=== PATIENT | male | born 1990 | race African-American/Black ===

== ENCOUNTER 2018-04-20 11:09 | Emergency (ER) | payer OTHER ==
--- NOTE | 2018-04-20 11:39 | ER Document Report ---
HPI - HPI Patient complains to provider of: Persistent right leg pain Onset: Other - 3 weeks Pain Level: 4 Context: 27-year-old male was lifting something when he worked at [employer] and felt pain in the right side of his back. It then progressed to where he had right buttocks pain that radiated down into his leg. He was seen Friday at [facility] and they told him that he had a pulled muscle. No hx back injury or pain. No saddle anesthesia. No fever. No IV drug use. Associated Symptoms: None Exacerbated by: Walking Relieved by: Denies Similar symptoms previously: Yes Recently seen / treated by doctor: Yes - ROS ROS below otherwise negative: Yes Systems Reviewed and Negative: Yes All other systems reviewed and negative Past Medical History - General Information source: Patient - Social History Smoking Status: Unknown if Ever Smoked Frequency of alcohol use: None Drug Abuse: None Lives with: Family Family History: None - Medical History Medical History: Negative Surgical Hx: Negative Vertical Provider Document - CONSTITUTIONAL Agree With Documented VS: Yes Exam Limitations: No Limitations General Appearance: No Apparent Distress - INFECTION CONTROL TRAVEL OUTSIDE OF THE [place] IN LAST 30 DAYS: No - GI/ABDOMEN Gastrointestinal: Abdomen Soft, Abdomen Non-Tender, No Organomegaly - BACK Back: Normal Inspection - MUSCULOSKELETAL/EXTREMETIES Musculoskeletal/Extremeties: MAEW, FROM, Non-Tender - NEURO Level of Consciousness: Alert Motor/Sensory: No Motor Deficit - 5+ strenth gt toe and foot eversion bilaterally, No Sensory Deficit Deep Tendon Reflexes: 2+ - scot patellar, 2 + right ankle , 0 left ankle - DERM Integumentary: No Rash Course - Vital Signs Vital signs: Temp Pulse Resp BP Pulse Ox 98.4 F 70 18 105/56 L 98 04/20/18 11:15 04/20/18 11:15 04/20/18 11:15 04/20/18 11:15 04/20/18 11:15 Discharge - Discharge Clinical Impression: Sciatica, Right ankle reflex loss Condition: Good Disposition: HOME, SELF-CARE Instructions: Acetaminophen, Ibuprofen (General) ([facility]), Sciatica ([facility]) Additional Instructions: See the neurologist about this leg nerve pain and loss of the ankle reflex on the right ankle Return to the emergency room for any worsening of the symptoms if you lose sensation in your groin or the pain gets worse Tylenol up to 4000 mg a day Motrin 3-4 times a day for inflammation and pain Prescriptions: Ibuprofen [Motrin 600 mg Tablet] 600 mg PO Q8HP PRN #30 tablet PRN Reason: Forms: Return to Work Referrals: BOUCHRA MAYO MD [NO LOCAL MD] - Follow up as needed
[2018-04-20 11:46] VITALS: BP 105/56
--- NOTE | 2018-04-20 12:35 | RADIOLOGY REPORT (SQ) ---
EXAM DESCRIPTION: L SPINE WHOLE COMPLETED DATE/TIME: 04/20/2018 12:23 pm REASON FOR STUDY: right leg radiculopathy COMPARISON: None. NUMBER OF VIEWS: Five views including obliques. TECHNIQUE: AP, lateral, oblique, and sacral radiographic images acquired of the lumbar spine. LIMITATIONS: None. FINDINGS: MINERALIZATION: Normal. SEGMENTATION: Normal. No transitional anatomy. ALIGNMENT: Normal. VERTEBRAE: Maintained height. No fracture or worrisome bone lesion. DISCS: Preserved height. No significant osteophytes or end plate irregularity. POSTERIOR ELEMENTS: Pedicles and facets are intact. No pars defect or posterior arch defects. HARDWARE: None in the spine. PARASPINAL SOFT TISSUES: Normal. PELVIS: Intact as visualized. No fractures or worrisome bone lesions. SI joints intact. OTHER: No other significant finding. IMPRESSION: No significant findings. TECHNICAL DOCUMENTATION: JOB ID: [id number] [employer]- All Rights Reserved Reading location - IP/workstation name: [email or web address]
== END 2018-04-20 12:48 | disposition home or self-care (01) ==
LOC: EDBD → ER 11:09
DX: M54.31 Sciatica, right side (principal); M79.604 Pain in right leg
CPT/HCPCS: 72110; 99283